=== PATIENT | male | born 1945 | race Two or more races ===

== ENCOUNTER → 2016-12-24 | Outpatient (CLI) | payer MEDICARE, OTHER ==
[~2016-12-24] MED LIST: ISOVUE-370 76% 100ML VIAL (Q9967) As Ordered ONE
--- NOTE | 2016-12-24 14:35 | REP ---
Clinical: History of renal cell carcinoma. Technique: Axial contrast enhanced images from the lung bases to the pubic symphysis using 100 ml Isovue 370 intravenous contrast material with precontrast and delayed images of the abdomen as well as coronal and sagittal re-formations. Comparison: None. Findings: Lung bases demonstrate mild infrahilar bronchiectasis. Visualized portions of the heart and pericardium are within normal limits. Liver demonstrates multiple hypodensities which remain low density throughout the examination and are most compatible with scattered benign hepatic cysts. Spleen, pancreas, gallbladder, left adrenal gland and left kidney are normal. However mild left hydroureteronephrosis is appreciated to the bladder without obstructing calculus. Findings may be related to bladder outlet obstruction by enlarged heterogeneous prostate gland measuring greater than 7.3 cm transverse diameter. The patient is status post right nephrectomy with postsurgical changes in the right renal fossa and no evidence for recurrence or mass. The enteric system demonstrates colonic diverticula without acute diverticulitis. Normal terminal ileum and appendix are identified in the right lower quadrant. Pelvis again demonstrates an enlarged heterogeneous prostate gland which may be causing outlet obstruction based on the mild left renal hydronephrosis. No ascites. No free air. No obvious intraperitoneal or retroperitoneal adenopathy. Abdominal aorta and vasculature appears relatively normal. Musculoskeletal structures demonstrate degenerative changes without focal osseous abnormality. Impression: 1. Benign appearing hepatic cysts. 2. Mild left renal hydroureternephrosis likely secondary to bladder outlet obstruction by enlarged heterogeneous prostate gland measuring greater than 7.2 cm transverse diameter. 3. Prior right nephrectomy for renal cell carcinoma by history and no evidence for recurrence, mass or metastatic disease. 4. Diverticulosis without acute diverticulitis. 5. Further chronic changes as described above. Signed by Hero Livingston MD 12/24/2016 02:26 P
== END ==
LOC: M RAD 12:45
PROVIDERS: ATTEND Urology
DX: C64.1 Malignant neoplasm of right kidney, except renal pelvis (principal); K76.89 Other specified diseases of liver; N13.30 Unspecified hydronephrosis; N40.1 Benign prostatic hyperplasia with lower urinary tract symptoms; N32.0 Bladder-neck obstruction; K57.90 Diverticulosis of intestine, part unspecified, without perforation or abscess without bleeding
CPT/HCPCS: 74178; Q9967

== ENCOUNTER → 2017-01-02 | Outpatient (CLI) | payer MEDICARE, OTHER ==
--- NOTE | 2017-01-02 15:57 | REP ---
Chest x-ray: Two views. History: Renal cell carcinoma on the right. Comparison chest x-ray August 04, 2003. Findings: The lungs are well inflated and free of infiltrate. The pleural angles are sharp. Heart size is normal. There are degenerative changes in the thoracic spine. Pulmonary vasculature is not increased. There is an old healed rib fracture on the left unchanged. Impression: No active disease. Signed by Howard Lindo MD 01/02/2017 06:38 P
== END ==
LOC: M SMT 13:15
PROVIDERS: ATTEND Nurse Practitioner Family
DX: C64.1 Malignant neoplasm of right kidney, except renal pelvis (principal)

== ENCOUNTER → 2018-01-13 | Outpatient (CLI) | payer MEDICARE, OTHER ==
[~2018-01-13] MED LIST changes: +ISOVUE-370 76% 100ML VIAL (Q9967) As Ordered; -ISOVUE-370 76% 100ML VIAL (Q9967) As Ordered ONE
== END ==
LOC: M RAD 08:39
DX: C65.9 Malignant neoplasm of unspecified renal pelvis (principal)
CPT/HCPCS: Q9967

== ENCOUNTER → 2024-11-20 | Outpatient (REF) | payer MEDICARE, OTHER ==
[2024-11-20 18:21] LABS: TOTAL PROTEIN,RANDOM URINE 12.4 MG/DL (0.0-14.0)
== END ==
LOC: M LAB REF 17:01
PROVIDERS: ATTEND Internal Medicine Nephrology
DX: N18.31 Chronic kidney disease, stage 3a (principal)